=== PATIENT | female | born 1955 ===

== ENCOUNTER 2024-04-16 08:15 | Inpatient (IN) | payer OTHER ==
[~2024-04-16] VITALS: Ht 154.9 cm; Wt 88.0 kg
[2024-04-16 09:21] LABS: HEMATOCRIT 39.7 % (36.0-45.00); HEMOGLOBIN 13.2 g/dL (12.0-15.00); MEAN CELL VOLUME 89.7 fL (80.00-100.00); MEAN CORPUSCULAR HEMOGLOBIN 29.8 pg (27.00-32.0); MEAN CORPUSCULAR HGB CONC 33.3 g/dl (32.0-36.0); PLATELET COUNT 449 K/uL (150-450); RED BLOOD COUNT 4.43 M/uL (4.00-6.00); RED CELL DISTRIBUTION WIDTH 14.1 % (11.5-14.5)
[2024-04-16 09:48] LABS: INR 0.97; PARTIAL THROMBOPLASTIN TIME 27.4 SECONDS (22.0-34.0); PROTHROMBIN TIME 10.6 SECONDS (9.0-11.5)
[2024-04-16 09:52] LABS: URINE APPEARANCE Cloudy; URINE BILIRRUBIN Negative (NEGATIVE); URINE BLOOD Small; URINE COLOR Dark Yellow; URINE GLUCOSE Negative (NEGATIVE); URINE KETONE Trace (NEGATIVE); URINE LEUKOCYTE Moderate; URINE NITRATE Negative; URINE PROTEIN Negative (NEGATIVE); URINE UROBILINOGEN 0.2 E.U./dl
[2024-04-16 09:58] LABS: URINE BACTERIA 1004.8 uL (0.0-1933); URINE CAST 1.76 uL (0.0-1.40); URINE EPITHELIAL CELLS 66.4 uL (0.0-38.8); URINE RBC 122.8 uL (0.0-20.8); URINE WBC 447.2 uL (0.0-23.2)
[2024-04-16] MEDS ORDERED: SYNTHROID50 MCG PO (10:07)
[2024-04-16] MEDS ORDERED: TRAMADOL HCL E100 M1 PO (10:07)
[2024-04-16] MEDS ORDERED: VASOTEC20 M1 PO (10:07)
[2024-04-16 10:08] VITALS: BP 160/90
[2024-04-16] MEDS ORDERED: CATAFLAN (10:08)
[2024-04-16 10:14] VITALS: BP 148/89
[2024-04-16 10:15] LABS: ALBUMIN 3.7 gm/dL (3.4-5.0); BILIRUBIN TOTAL 0.46 mg/dL (0.3-1.2); CALCIUM 10.3 mg/dL (8.5-10.1); CREATININE SERUM 0.75 mg/dL (0.55-1.02); GFR 76.62; GLOBULINA 3.9 G/DL (2.4-3.5); POTASSIUM 5.52 mEq/L (3.5-5.1); TOTAL PROTEIN 7.6 gm/dL (6.4-8.2)
[2024-04-16] MEDS ORDERED: CYMBALTA20 MG PO (10:18)
[2024-04-16 10:21] LABS: URINE CRYSTALS MANY /HPF
[2024-04-22] MEDS ORDERED: OxyCODONE HCL/APAP UD (PERCOCET) PO PRN (09:30)
[2024-04-22] MEDS ORDERED: ONDANSETRON HCL 2 MG/ML VIAL IV PRN (09:30)
[2024-04-22] MEDS ORDERED: KETOROLAC TROMETHAMINE 60 MG VIAL IM NR (10:15)
[2024-04-22] MEDS ORDERED: CEFAZOLIN SODIUM 1,000 MG VIAL IV ONE (10:15)
[2024-04-22] MEDS ORDERED: MORPHINE SULFATE 4 MG/ML VIAL IV ONE ×2 (10:15→12:50)
[2024-04-22] MEDS ORDERED: TRANEXAMIC ACID 100MG/1ML (1000MG) AMPUL IV ONE ×2 (10:15)
[2024-04-22] MEDS ORDERED: MORPHINE SULFATE 4 MG/ML CARTRIDGE IV SCH (12:00)
[2024-04-22] MEDS ORDERED: CEFAZOLIN SODIUM 1,000 MG VIAL IV SCH (12:00)
[2024-04-22] MEDS ORDERED: CEFAZOLIN SODIUM 1,000 MG VIAL ONE (14:11)
[2024-04-22 16:39] VITALS: BP 160/90
[2024-04-22 20:59] VITALS: BP 160/80
[2024-04-22] MEDS ORDERED: ORPHENADRINE CITRATE 100 MG TABLET PO SCH (21:00)
[2024-04-22] MEDS ORDERED: GABAPENTIN 100 MG CAPSULE PO SCH (21:00)
[2024-04-22] MEDS ORDERED: ENALAPRILAT DIHYDRATE 1.25 MG/ML VIAL IV PRN (21:15)
[2024-04-22 23:40] VITALS: BP 136/71
[2024-04-23 01:48] LABS: HEMATOCRIT 34.8 % (36.0-45.00); MEAN CELL VOLUME 88.5 fL (80.00-100.00); MEAN CORPUSCULAR HEMOGLOBIN 30.5 pg (27.00-32.0); MEAN CORPUSCULAR HGB CONC 34.5 g/dl (32.0-36.0); PLATELET COUNT 423 K/uL (150-450); RED BLOOD COUNT 3.93 M/uL (4.00-6.00); RED CELL DISTRIBUTION WIDTH 14.4 % (11.5-14.5)
[2024-04-23] MEDS ORDERED: LEVOTHYROXINE SODIUM 50 MCG TABLET PO ONE (02:37)
[2024-04-23] MEDS ORDERED: LEVOTHYROXINE SODIUM 50 MCG TABLET PO SCH (06:00)
[2024-04-23 07:58] VITALS: BP 144/77
[2024-04-23] MEDS ORDERED: CYMBALTA 20 MG PO SCH (09:00)
[2024-04-23] MEDS ORDERED: ENALAPRIL MALEATE 20 MG TABLET PO SCH (09:00)
[2024-04-23] MEDS ORDERED: APIXABAN 2.5 MG TABLET PO SCH (09:00)
[2024-04-23] MEDS ORDERED: Cyanocobalamin/Mecobalamin 1 TAB.SL SL NR (16:15)
[2024-04-23] MEDS ORDERED: IRON FUM,PS/FOLIC ACID/VITC/B3 1 CAP CAPSULE PO NR (16:15)
[2024-04-23 16:33] VITALS: BP 145/83
[2024-04-23] MEDS ORDERED: VITAMIN B COMPLEX 1 EACH PO SCH (17:00)
[2024-04-24 01:06] LABS: HEMATOCRIT 36.7 % (36.0-45.00); HEMOGLOBIN 12.6 g/dL (12.0-15.00); MEAN CELL VOLUME 89.5 fL (80.00-100.00); MEAN CORPUSCULAR HEMOGLOBIN 30.6 pg (27.00-32.0); MEAN CORPUSCULAR HGB CONC 34.2 g/dl (32.0-36.0); PLATELET COUNT 394 K/uL (150-450); RED CELL DISTRIBUTION WIDTH 14.1 % (11.5-14.5)
[2024-04-24 03:05] VITALS: BP 150/79
[2024-04-24 08:14] VITALS: BP 122/73
[2024-04-24] MEDS ORDERED: IRON FUM,PS/FOLIC ACID/VITC/B3 1 CAP CAPSULE PO SCH (09:00)
[2024-04-24] MEDS ORDERED: Cyanocobalamin/Mecobalamin 1 TAB.SL SL SCH (09:00)
[2024-04-24] MEDS ORDERED: NORFLEX100MG PO (12:58)
[2024-04-24] MEDS ORDERED: GABAPENTIN100 MG PO (12:59)
[2024-04-24] MEDS ORDERED: ELIQUIS2.5 MG PO (12:59)
[2024-04-24] MEDS ORDERED: OXYC1TAB9 PO (13:00)
[2024-04-24] MEDS ORDERED: OxyCODONE HCL/APAP UD (PERCOCET) PO PRN (14:30)
[2024-04-24 15:49] VITALS: BP 128/74
== END 2024-04-24 19:41 | disposition home or self-care (01) | DRG 470 ==
LOC: O/R 04-22 06:00 → OB/GYN 04-22 06:00 → SURH 04-22 07:00 → OB/GYN 04-22 13:58
PROVIDERS: ADMIT Orthopaedic Surgery; ATTEND Orthopaedic Surgery
PROC: 0SRC0JZ Replacement of Right Knee Joint with Synthetic Substitute, Open Approach (ICD-10-PCS; principal; 2024-04-22 07:00)
DX: M17.11 Unilateral primary osteoarthritis, right knee (principal); D62 Acute posthemorrhagic anemia; M85.661 Other cyst of bone, right lower leg; I10 Essential (primary) hypertension; E03.9 Hypothyroidism, unspecified

== ENCOUNTER 2024-05-27 14:06 | Outpatient (CLI) | payer OTHER ==
[~2024-05-27 14:06] MED LIST: CATAFLAN; CYMBALTA20 MG PO; ELIQUIS2.5 MG PO; GABAPENTIN100 MG PO; NORFLEX100MG PO; OXYC1TAB9 PO; SYNTHROID50 MCG PO; TRAMADOL HCL E100 M1 PO; VASOTEC20 M1 PO
== END 2024-05-27 14:16 | disposition home or self-care (01) ==
LOC: RAD 14:06
PROVIDERS: ATTEND Orthopaedic Surgery
DX: M25.511 Pain in right shoulder (principal)

== ENCOUNTER 2024-05-29 13:26 | Outpatient (CLI) | payer OTHER | END 2024-05-29 13:27 | disposition home or self-care (01) | LOC: NUCLEAR 13:26 | PROVIDERS: ATTEND Orthopaedic Surgery | DX: M25.511 Pain in right shoulder (principal); M25.512 Pain in left shoulder ==

== ENCOUNTER 2024-06-05 13:12 | Outpatient (CLI) | payer OTHER | END 2024-06-05 13:25 | disposition home or self-care (01) | LOC: MRI 13:12 | PROVIDERS: ATTEND Orthopaedic Surgery | DX: M25.511 Pain in right shoulder (principal) | CPT/HCPCS: 73220; Q9965; 73221 ==